=== PATIENT | male | born 1955 | race Caucasian/White ===

== ENCOUNTER 2020-10-01 18:34 | Emergency (ER) | payer BC, OTHER ==
[2020-10-01 18:41] VITALS: BP 152/93; PULSE 85; TEMP 99.2; BMI 30.1
[2020-10-01 20:05] LABS: MEAN PLT VOLUME 8.9 fl (7.5-11.1); WHITE BLOOD COUNT 8.9 K/mm3 (4.0-10.8)
[2020-10-01 20:09] LABS: HEMATOCRIT 44.1 % (35.4-49); HEMOGLOBIN 15.3 GM/dl (11.7-16.9); MCH 33.5 pg (25.7-33.7); MCHC 34.8 g/dl (32.0-35.9); MEAN CELL VOLUME 96.1 fl (80-96); PLATELET COUNT 202 K/MM3 (134-434); RBC 4.58 M/mm3 (4.00-5.60)
[2020-10-01 20:19] LABS: ALBUMIN 4.1 g/dl (3.4-5.0); ALK PHOS 79 U/L (45-117); ANION GAP 8 MMOL/L (8-16); BILIRUBIN,TOTAL 0.7 mg/dl (0.2-1); CALCIUM 9.3 mg/dl (8.5-10); CHLORIDE 107 mmol/L (98-107); CO2 23 mmol/L (21-32); CREATININE 0.9 mg/dl (0.55-1.3); GLUCOSE,RANDOM 101 mg/dl (74-106); POTASSIUM 4.5 mmol/L (3.5-5.1); SGOT/AST 32 U/L (15-37); SGPT/ALT 41 U/L (13-61); SODIUM 138 mmol/L (136-145); TOT PROT 6.9 g/dl (6.4-8.2)
[2020-10-01 21:31] LABS: PLATELET ESTIMATE ADEQUATE
== END 2020-10-01 23:54 | disposition home or self-care (01) ==
LOC: FER 18:34
DX: R55 Syncope and collapse (principal); S00.83XA Contusion of other part of head, initial encounter; S00.31XA Abrasion of nose, initial encounter
CPT/HCPCS: 36415; 70450-TC; 70486-TC; 71275-TC; 72125-TC; 80053; 82550; 82553; 84484; 85025; 85379; 93005; 99284-25; Q9967

== ENCOUNTER 2021-01-11 00:10 | Emergency (ER) | payer BC ==
[2021-01-11 00:20] VITALS: BP 142/84; BMI 24.3
[2021-01-11] MEDS ORDERED: ACETAMINOPHEN 500 MG TABLET (FP) PO ONE (00:21)
[2021-01-11] MEDS ORDERED: SODIUM CHLORIDE 1,000 ML IV ONE (00:25)
[2021-01-11] MEDS ORDERED: ACETAMINOPHEN 500 MG TABLET (FP) ONE (00:32)
[2021-01-11 01:35] LABS: BASO % 0.3 % (0-2.0); EOS % 0.6 % (0-4.5); HEMATOCRIT 41.9 % (35.4-49); HEMOGLOBIN 14.7 GM/dL (11.7-16.9); LYMPH % 15.1 % (8-40); MCH 32.7 pg (25.7-33.7); MCHC 35.2 g/dl (32.0-35.9); MEAN PLT VOLUME 9.6 fl (7.5-11.1); PLATELET COUNT 186 K/MM3 (134-434); RDW 12.5 % (11.9-15.9); WHITE BLOOD COUNT 14.2 K/mm3 (4.0-10.0)
[2021-01-11 02:43] VITALS: PULSE 83; TEMP 99.3
[2021-01-11 03:10] LABS: ALBUMIN 3.9 g/dl (3.4-5.0); BILIRUBIN,TOTAL 0.7 mg/dL (0.2-1); BLOOD UREA NITROGEN 17.3 mg/dL (7-18); CALCIUM 9.1 mg/dL (8.5-10.1)
[2021-01-11] MEDS ORDERED: CEFTRIAXONE 1,000 MG in DEXTROSE 5%-WATER - 50 ML IVPB ONE (03:22)
[2021-01-11] MEDS ORDERED: AZITHROMYCIN 500 MG TABLET PO ONE (03:23)
[2021-01-11] MEDS ORDERED: cefTRIAXone SODIUM 1 GM VIAL ONE (03:28)
[2021-01-11] MEDS ORDERED: AZITHROMYCIN 250 MG TABLET ONE (03:30)
== END 2021-01-11 03:48 | disposition home or self-care (01) ==
LOC: FER 00:10
PROC: 3E03329 Introduction of Other Anti-infective into Peripheral Vein, Percutaneous Approach (ICD-10-PCS; principal; 2021-01-11)
PROC: 3E0337Z Introduction of Electrolytic and Water Balance Substance into Peripheral Vein, Percutaneous Approach (ICD-10-PCS; 2021-01-11)
DX: J18.9 Pneumonia, unspecified organism (principal)
CPT/HCPCS: 36415; 71045-TC-FY; 80053; 82550; 82553; 84484; 85025; 87804; 93005; 99285-25